=== PATIENT | female | born 1990 | race Caucasian/White ===

== ENCOUNTER 2018-02-09 11:34 | Inpatient (IN) | payer OTHER ==
[~2018-02-09] VITALS: Ht 165.1 cm; Wt 59.9 kg
[2018-02-09 11:34] VITALS: BP_SYST 133
[2018-02-09 12:13] LABS: HEMATOCRIT 36.3 % (36-48); HEMOGLOBIN 12.4 g/dL (12.0-16.0); MEAN CORPUSCULAR HEMOGLOBIN 29 pg (27-31); MEAN CORPUSCULAR HGB CONC 34 % (32-36); MEAN CORPUSCULAR VOLUME 84 fL (79.0-98.0); PLATELET COUNT (AUTO) 185 K/uL (130-430); RED BLOOD CELL COUNT(AUTO) 4.35 MIL/uL (4.2-6.2); WHITE BLOOD COUNT (AUTO) 10.1 K/uL (4.8-10.8)
[2018-02-09 12:19] LABS: CALCIUM 9.1 mg/dL (8.4-11.0); CREATININE 0.82 mg/dL (0.55-1.30); POTASSIUM 3.6 mmol/L (3.5-5.1)
[2018-02-09 12:24] LABS: ALBUMIN 4.1 g/dL (3.4-4.8); TOTAL BILIRUBIN 0.5 mg/dL (0.0-1.0)
[2018-02-09 12:59] LABS: BILIRUBIN,URINE NEGATIVE (NEGATIVE); BLOOD, URINE 2+ (NEGATIVE); CLARITY/URINE CLEAR (CLEAR); COLOR,URINE YELLOW (YELLOW); GLUCOSE,URINE NEGATIVE (NEGATIVE); KETONES,URINE NEGATIVE (NEGATIVE); LEUKOCYTE ESTERASE ,URINE NEGATIVE (NEGATIVE); NITRITE, URINE NEGATIVE (NEGATIVE); PH,URINE 5.5 (5.0-8.0); PROTEIN URINE NEGATIVE (NEGATIVE); UROBILINOGEN,URINE 0.2 (0.2-1.0)
[2018-02-09 13:15] LABS: BACTERIA,URINE FEW /HPF (None Seen); RBC,URINE 0-3 /HPF (0-3); WBC,URINE 0-3 /HPF (0-3)
[2018-02-09 13:16] LABS: MUCUS,URINE None Seen /LPF (None Seen)
[2018-02-09 13:25] LABS: BAND % (MANUAL) 1 % (0-6); BASOPHILS % (MANUAL) 0 % (0-2); EOSINOPHILS % (MANUAL) 0 % (0-7); LYMPHOCYTES % (MANUAL) 28 % (20-46); MONOCYTES % (MANUAL) 6 % (0-11)
[2018-02-09 14:30] VITALS: BP_SYST 126
[2018-02-09 16:07] LABS: HCG,QUAL RESULT NEGATIVE (NEGATIVE)
[2018-02-09 16:36] VITALS: BP_SYST 126
[2018-02-09] MEDS: NACL 0.9% 1,000 ML IV SCH (16:51)
[2018-02-09] MEDS ORDERED: ACETAMINOPHEN 650 MG/20.3 ML UDC PO PRN (19:00)
[2018-02-09 20:00] VITALS: BP_SYST 124
[2018-02-09] MEDS ORDERED: DOCUSATE SODIUM 100 MG CAPSULE PO PRN (21:30)
[2018-02-09] MEDS ORDERED: LORazepam 2 MG/ML VIAL IVP PRN (21:30)
[2018-02-09] MEDS ORDERED: POTASSIUM CHLORIDE 20 MEQ TAB.PRT.SR PO PRN (21:30)
[2018-02-09] MEDS ORDERED: MAGNESIUM SULFATE 50 ML IV PRN (21:30)
[2018-02-09] MEDS ORDERED: MORPHINE 2 MG/ML INJ. SYRINGE IVP PRN ×2 (21:30)
[2018-02-09] MEDS ORDERED: ACETAMINOPHEN 325 MG TABLET PO PRN (21:30)
[2018-02-09] MEDS: HYDROcodone/ACETAMIN 10-325 MG TAB PO PRN (22:06)
[2018-02-09] MEDS: ONDANSETRON HCL 4 MG/2 ML VIAL IVP PRN (22:06)
[2018-02-09] MEDS: ZOLPIDEM TARTRATE 5 MG TABLET PO PRN (23:07)
[2018-02-10] VITALS (8 sets, daily range): BP systolic 95–134
[2018-02-10] MEDS: NACL 0.9% 1,000 ML IV SCH ×2 (05:23→12:50)
[2018-02-10] MEDS: HYDROcodone/ACETAMIN 10-325 MG TAB PO PRN (05:42)
[2018-02-10 06:59] LABS: BASOPHILS % (AUTO) 0.6 % (0.0-2.0); EOSINOPHILS # (AUTO) 0.1 K/uL (0.0-0.4); EOSINOPHILS % (AUTO) 1.1 % (0.0-4.0); HEMOGLOBIN 11.7 g/dL (12.0-16.0); LYMPHOCYTES # (AUTO) 4.2 K/uL (1.0-5.5); LYMPHOCYTES % (AUTO) 52.8 % (20.5-51.5); MEAN CORPUSCULAR HEMOGLOBIN 28 pg (27-31); MEAN CORPUSCULAR HGB CONC 33 % (32-36); MEAN CORPUSCULAR VOLUME 84 fL (79.0-98.0); MONOCYTES # (AUTO) 0.6 K/uL (0.0-1.0); MONOCYTES % (AUTO) 7.1 % (1.7-9.3); NEUTROPHILS % (AUTO) 38.4 % (40.0-70.0); PLATELET COUNT (AUTO) 178 K/uL (130-430); RED BLOOD CELL COUNT(AUTO) 4.15 MIL/uL (4.2-6.2); WHITE BLOOD COUNT (AUTO) 7.9 K/uL (4.8-10.8)
[2018-02-10 07:05] LABS: CALCIUM 8.7 mg/dL (8.4-11.0); CREATININE 0.78 mg/dL (0.55-1.30); POTASSIUM 3.8 mmol/L (3.5-5.1)
[2018-02-10] MEDS ORDERED: SUMAtriptan SUCCINATE 50 MG TABLET PO ONE (08:00)
[2018-02-10] MEDS: ONDANSETRON HCL 4 MG/2 ML VIAL IVP PRN (08:27)
[2018-02-10] MEDS ORDERED: MUPIROCIN NASAL 2% OINT. 1 GM NS PRN (09:00)
[2018-02-10] MEDS: METOCLOPRAMIDE HCL 10 MG/2 ML VIAL IVP SCH ×3 (11:59→21:44)
[2018-02-10] MEDS ORDERED: AMITRIPTYLINE HCL 25 MG TABLET (ELAVIL) PO SCH (21:00)
[2018-02-10] MEDS ORDERED: MORPHINE 4 MG/ML INJ. SYRINGE IVP PRN (21:30)
[2018-02-10] MEDS: ZOLPIDEM TARTRATE 5 MG TABLET PO PRN (22:15)
[2018-02-11 00:15] VITALS: BP_SYST 110
[2018-02-11] MEDS: NACL 0.9% 1,000 ML IV SCH (01:08)
[2018-02-11] MEDS: METOCLOPRAMIDE HCL 10 MG/2 ML VIAL IVP SCH (06:00)
[2018-02-11] MEDS ORDERED: ONDA4TAB5 PO (06:19)
[2018-02-11] MEDS ORDERED: IMI50 PO (06:19)
[2018-02-11 06:42] LABS: BASOPHILS % (AUTO) 0.7 % (0.0-2.0); EOSINOPHILS # (AUTO) 0.1 K/uL (0.0-0.4); EOSINOPHILS % (AUTO) 1.1 % (0.0-4.0); HEMATOCRIT 33.4 % (36-48); HEMOGLOBIN 11.1 g/dL (12.0-16.0); LYMPHOCYTES # (AUTO) 3.2 K/uL (1.0-5.5); LYMPHOCYTES % (AUTO) 46.3 % (20.5-51.5); MEAN CORPUSCULAR HEMOGLOBIN 28 pg (27-31); MEAN CORPUSCULAR HGB CONC 33 % (32-36); MEAN CORPUSCULAR VOLUME 84 fL (79.0-98.0); MONOCYTES # (AUTO) 0.5 K/uL (0.0-1.0); MONOCYTES % (AUTO) 7.7 % (1.7-9.3); NEUTROPHILS % (AUTO) 44.2 % (40.0-70.0); PLATELET COUNT (AUTO) 178 K/uL (130-430); RED BLOOD CELL COUNT(AUTO) 3.97 MIL/uL (4.2-6.2); RED CELL DISTRIBUTION WIDTH 12.1 % (9.0-15.0); WHITE BLOOD COUNT (AUTO) 6.9 K/uL (4.8-10.8)
[2018-02-11 06:51] LABS: CALCIUM 8.5 mg/dL (8.4-11.0); CREATININE 0.72 mg/dL (0.55-1.30); POTASSIUM 3.8 mmol/L (3.5-5.1)
[2018-02-11 08:00] VITALS: BP_SYST 100
[2018-02-11 09:46] VITALS: BP_SYST 112
== END 2018-02-11 10:30 | disposition home or self-care (01) | DRG 48 ==
LOC: SED 11:34 → STU 13:47
PROVIDERS: ADMIT General Practice; ATTEND General Practice
DX: G90.9 Disorder of the autonomic nervous system, unspecified (principal); I95.9 Hypotension, unspecified; I10 Essential (primary) hypertension; G43.909 Migraine, unspecified, not intractable, without status migrainosus; Z82.3 Family history of stroke; Z82.0 Family history of epilepsy and other diseases of the nervous system
CPT/HCPCS: 36415; 70450-TC; 71045; 80048; 80053; 81000-TC; 83735-TC; 84443-TC; 84484; 84703; 85007; 85025; 85027; 85379; 85651-TC; 86038; 86140; 93005; 93306; 93880; 99285; J2270; J2405; J2765; J7030